=== PATIENT | female | born 1975 | race Caucasian/White ===

== ENCOUNTER 2024-04-10 14:56 | Outpatient (CLI) | payer OTHER, SELFPAY ==
--- NOTE | 2024-04-10 15:10 | ECG_ITS ---
SEE SCANNED COPY FOR CONFIRMED REPORT MTDD
[2024-04-10 15:51] LABS: Hematocrit 41.2 % (37.0-47.0); Hemoglobin 13.7 g/dL (12.0-15.0)
== END 2024-04-10 14:57 | disposition home or self-care (01) ==
LOC: ANHSURGERY 15:01
PROVIDERS: Anesthesiology; PCP Registered Nurse; Visit Provider Surgery Plastic and Reconstructive Surgery
DX: Z01.818 Encounter for other preprocedural examination (principal); L57.4 Cutis laxa senilis
CPT/HCPCS: 36415; 85014; 85018; 93005

== ENCOUNTER 2024-04-13 00:09 | Day surgery (SDC) | payer OTHER, SELFPAY ==
[2024-03-28] MEDS: TRANEXAMIC ACID 1,000MG/ISO100 1,000 MG/100 ML BAG 200 MG IVPB (07:30)
[2024-04-06 12:10] VITALS: BMI 20.7
--- NOTE | 2024-04-06 12:35 | PC.NURSE ---
Report to the Outpatient Waiting Room, entrance under the green pavilion located off [facility], at time __6:00AM on date ___04/13/24____. Planned Procedure Time: __7:30AM . Time changes happen often and if your time is changed the preop area will call you the afternoon before. - You and your visitor will be asked to self-screen and do not enter if you have any COVID symptoms. - A mask is optional within the hospital at this time. Patients may have clear liquids (water, carbonated beverages, clear teas, apple juice) until 3 hours prior to surgery with a maximum of 20 ounces. - No food from midnight until time of surgery. Take the following medications with a SIP of water the morning of surgery: ____NONE DO NOT STOP ANY OF YOUR OTHER PRESCRIPTION MEDICATIONS PRIOR TO SURGERY ?EXCEPT THE FOLLOWING Medications to discontinue per physician NONE Date to take last dose Please no make-up, nail filipino, hairspray, perfume, deodorant, or body powder the day of surgery. No jewelry (including any body piercings) or valuables the day of surgery, leave them at home. Please take a shower or bath the night before, or the morning of, surgery with an antibacterial soap. Wear comfortable, loose fitting clothing. - Jewelry must be removed prior to entering the operating room. Rings and piercings that are not removed may be cut off. - The hospital will not accept responsibility for valuables. - Please leave all valuables, including medications, at home the day of surgery. If you are going home after surgery, a licensed tow driver must drive you home. - NO public transportation without another adult if you receive anesthesia. - We recommend that an adult stay with you for 24 hours following discharge. - We also recommend that you do not drive, make important decision, drink alcoholic beverages, or take any drugs that were not prescribed by your health care provider for at least 24 hours after your discharge time. Follow any additional instructions given to you from your surgeon. If you or anyone in your household have experienced Covid symptoms in the past week, please notify your surgeon or the nurse liaison at the phone number below for possible testing. Telephone instructions given to ___PATIENT and asked if any additional questions and then verbalized understanding. Patient advised to call surgeon office or pre surgery nurse liaison [phone] if any additional questions.
[2024-04-13] VITALS (17 sets, daily range): BP systolic 94–169; BP diastolic 46–99; PULSE 66–99; RESP 9–20; TEMP 36.3–37.2; O2SAT 97–100
[2024-04-13 06:40] LABS: Urine Cotinine NEGATIVE
[2024-04-13] MEDS: LACTATED RINGERS 1,000 ML 30 ML IV CONT ×3 (07:00→11:41)
--- NOTE | 2024-04-13 07:20 | WPDHPUPDATE1 ---
History and Physical Update Update Date/Time: 04/13/24 07:20 History and Physical has been reviewed, including an updated exam of the patient. There are NO changes in the patient's condition. Risks, benefits, and alternatives have been discussed and questions answered. Patient agrees to proceed with procedure.
--- NOTE | 2024-04-13 07:20 | W.PM.PROC2 ---
Procedure Note - Detailed Date of Procedure 04/13/24 Pre-op Diagnosis skin laxity Post-op Diagnosis Same Procedure Performed Progressive tension abdominoplasty with suction lipectomy Surgeon Vikram Olsen MD Anesthesia General Findings Tissue removed: 308 grams Lipoaspirate: 1200 cc Description of Procedure They are here today for the above procedures. Previously and again today the risks, benefits, alternatives were discussed in extensive detail. I wanted them to be very realistic about the risks involved as well as expectations. She has significant hypertrophic vs keloid of previous abdominal scars and understands she is at risk of this occurring again and even being worse. Her umbilicus is difficult to identify due to scarring and she understands we will evaluate intraoperatively and may save or recreate at a second stage in office at a later date. We discussed aftercare and what to monitor for. I was very upfront about the risks of wound breakdown leading to loss of skin, open wounds, and need for additional procedures with permanent abdominal deformity. We discussed DVT/PE risks and management. Made sure answered all of their questions to their satisfaction today and consent was obtained. They were marked in the preoperative holding area with their verification. The patient was taken to the operating room. Anesthesia was provided by anesthesiology. A Chapman catheter was started. Placed prone on the operating room table with care taken to protect from injury. Prepped and draped in a standard sterile fashion. A surgical time-out was taken. Stab incisions were made and tumescent solution was infiltrated. Once adequate time was allowed for hemostasis a 5mm basket and 3mm multi hole cannula were utilized to complete suction lipectomy based on S.A.F.E. technique in multiple planes and passes. Suction lipectomy continued to result based on pre-operative planning, intra-operative observation, and rolling pinch test which were in full agreement. Patient was then placed supine with care taken to protect from injury. I placed the patient in a flexed position to verify the upper and lower markings would reach. I then placed supine. A thorough abdominal examination was completed. Stab incisions were made and tumescent solution infiltrated. Stab incisions were made and tumescent solution was infiltrated. Once adequate time was allowed for hemostasis a 5mm basket and 3mm multi hole cannula were utilized to complete suction lipectomy based on S.A.F.E. technique in multiple planes and passes. Suction lipectomy continued to result based on pre-operative planning, intra-operative observation, and rolling pinch test which were in full agreement. A 10 blade was used to make the upper incision. I continued dissection down to the level of fascia. Elevated just what was necessary for repair of the diastasis. I then again flexed the bed to verify the upper skin flap would reach the lower markings without tension. Once verified I placed her supine once again and a 10 blade used to make the lower incision. I elevated up to level the umbilicus and left the umbilicus intact on a well-vascularized stalk. When the scar overlying the umbilicus was retracted she had viable umbilical shape. She had limted advancement of the abdominal flap and I was unable to get out her entired previous verticial scar. This vertical scar was excised but not lengthened from what it was preoperativly. The intervening tissue was removed. A 2 mm blunt cannula with 0.5% bupivacaine was injected deep to the fascia bilaterally. I plicated the diastasis recti using 0 PDO Stratafix barbed suture. This was in 2 separate layers using 2 separate sutures as well. The patient was flexed and starting from superior to inferior began plication using 2-0 Vicryl to obliterate all space in a standard progressive tension fashion. At the umbilicus I marked out the location
--- NOTE | 2024-04-13 07:26 | P.PNAN_ITS ---
Anes - Initial Pre Proc Eval Procedure: Operation Date: 04/13/24 07:30 Proposed Procedures p Abdominoplasty with Liposuction - Vikram Olsen MD Date/Time: 04/13/24 07:26 Surgeon: Vikram Olsen MD Pre Op Diagnosis: skin laxity Patient Data Age: 48 Gender: F Height: 1.6 m Weight: 53 kg Allergies Allergy/AdvReac Type Severity Reaction Status Date / Time epinephrine AdvReac Intermediate HEART Verified 04/06/24 12:33 RACING methyldopa AdvReac Mild Nausea Unverified 04/06/24 12:33 nisoldipine AdvReac Mild tachycardia Unverified 04/06/24 12:33 Home Medications Medication Instructions Recorded Confirmed Type sertraline 25 mg tablet 25 mg PO HS 04/06/24 04/06/24 History tamoxifen 20 mg tablet 20 mg PO DAILY 04/06/24 04/13/24 History Laboratory Tests 04/13/24 06:25 Cotinine Negative Patient hx anesthesia problems: none Family hx anesthesia problems: none Results Review: All pre-operative results and documents have been reviewed as part of the pre- operative evaluation. [facility] Family History Family History (Updated 04/26/18 @ 00:00 by CONVUSER A) Other Family history of coronary artery disease Social History Social History Smoking packs per day: 1 Smoking cigarettes per day: 20.0 Years smoked: 5 Smoking pack-years: 5.00 Smoking status: Former smoker Tobacco type: cigarettes Smoking end date: 05/22/98 Living arrangements: with family Additional living arrangements comments: SONS Spiritual care concerns: No Anes - Eval Final PreProcedure Day of Procedure 04/13/24 07:26 Patient weight: normal Heart: regular rate and rhythm Lungs: clear to auscultation Airway: Mallampati scale class II Neurological: alert and oriented Last oral intake: >/= 8 hours ASA classification: III Emergent: no Anesthetic plan: proceed Anesthesia type and monitoring: general ETT and standard monitoring Results Review: All pre-operative results and documents have been reviewed as part of the pre- operative evaluation. Informed Consent: The patient's anesthetic plan and its attendant risks and benefits were discussed with the patient/family/POA. Questions were solicited and answers provided to the satisfaction of the patient/family/POA.
[2024-04-13] MEDS: ceFAZolin 2 GM/D5W 50 ML 2 GM/50 ML BAG IVPB (08:15)
[2024-04-13] MEDS: BUPivacaine HCL 0.5% 10 ML AMP 60 ML INFILTRATE (11:05)
[2024-04-13] MEDS: fentaNYL CITRATE INJ (*CRX) 100 MCG/2 ML VIAL 25 MCG IV PUSH ×2 (12:24→12:50)
[2024-04-13] MEDS: LABETALOL HCL INJ 100 MG/20 ML VIAL IV PUSH ×3 (13:03→14:07)
[2024-04-13] MEDS: oxyCODONE HCL (*CRX) 5 MG TAB IR PO (13:50)
== END 2024-04-13 14:56 | disposition home or self-care (01) ==
PROVIDERS: PCP Registered Nurse; Visit Provider Surgery Plastic and Reconstructive Surgery
PROC: (CPT 15877; principal; 2024-04-13 07:30)
DX: Z41.1 Encounter for cosmetic surgery (principal); L57.4 Cutis laxa senilis; Z87.891 Personal history of nicotine dependence
CPT/HCPCS: 15877; 15830; 15847; 80307; A9270; J0171; J0690; J1100; J1170; J1596; J2250; J2704; J3010; J7120

== ENCOUNTER 2024-09-15 11:32 | Outpatient (CLI) | payer OTHER, SELFPAY ==
[2024-09-15 11:55] LABS: Basophils Percent Auto 0.5 % (0.2-1.2); Eosinophils Absolute Auto 0.2 K/mm3 (0-0.3); Hematocrit 41.5 % (37.0-47.0); Hemoglobin 14.1 g/dL (12.0-15.0); Immature Granulocyte Absolute 0.02 K/mm3 (0.00-0.031); Immature Granulocyte Percent A 0.4 % (0-0.5); Lymphocytes Absolute Auto 2.27 K/mm3 (0.9-3.2); Lymphocytes Percent Auto 40.3 % (18.3-44.2); Mean Corpuscular Hemoglobin 29.7 pg (26-34); Mean Corpuscular Volume 87.4 fl (80-100); Monocytes Absolute Auto 0.3 K/mm3 (0.1-0.6); Neutrophils Absolute Auto 2.9 K/mm3 (1.3-6.7); Neutrophils Percent Auto 50.8 % (45.5-73.1); Platelet Count Result 173 k/mm3 (150-375); Red Blood Count 4.75 M/mm3 (4.2-5.4); Red Cell Distribution Width 12.4 % (11.5-14.5); White Blood Count 5.6 K/mm3 (4.5-10.0)
[2024-09-15 13:34] LABS: Alanine Aminotransferase 21 U/L (6-35); Albumin Level 4.2 g/dL (3.5-5.1); Alkaline Phosphatase 77 U/L (38-126); Anion Gap 8 mmol/L (4-12); Aspartate Amino Transferase 26 U/L (14-36); Bilirubin,Total 0.5 mg/dL (0.2-1.3); Blood Urea Nitrogen 17 mg/dL (7-17); Calcium 8.9 mg/dL (8.4-10.2); Carbon Dioxide 25 mmol/L (22-30); Chloride 107 mmol/L (98-107); Estimated Glomerular Filt Rate 59; Glucose 112 mg/dL (65-110); Potassium 3.6 mmol/L (3.4-5.0); Sodium 140 mmol/L (137-145)
[2024-09-15 13:51] LABS: Vitamin D 25 Hydroxy 42.6 ng/mL
[2024-09-20 03:24] LABS: CA 15-3 29 U/mL (<32)
== END 2024-09-15 11:33 | disposition home or self-care (01) ==
LOC: ANHLAB 11:35
PROVIDERS: PCP Registered Nurse; Visit Provider Internal Medicine Hematology & Oncology
DX: C50.412 Malignant neoplasm of upper-outer quadrant of left female breast (principal); Z17.0 Estrogen receptor positive status [ER+]; E55.9 Vitamin D deficiency, unspecified
CPT/HCPCS: 36415; 80053; 82306; 85025; 86300